=== PATIENT | male | born 1990 | race Caucasian/White ===

== ENCOUNTER 2020-10-23 12:04 | Emergency (ER) | payer BC, OTHER ==
[~2020-10-23] VITALS: Ht 177.8 cm; Wt 73.6 kg
[~2020-10-23 12:04] MED LIST: HYDR-3653 PO; ONDA4TAB7 PO
[2020-10-23] MEDS ORDERED: ONDANSETRON 2MG/ML, 2ML IVPush ONE (12:30)
[2020-10-23] MEDS ORDERED: SODIUM CHLORIDE FLUSH 10ML SYR IVF ONE (12:30)
[2020-10-23 12:42] LABS: BASOPHILS % (AUTO) 0 % (0-1); EOSINOPHILS % (AUTO) 0 % (1-7); LYMPHOCYTES % (AUTO) 18 % (22-44); MEAN CORPUSCULAR HEMOGLOBIN 29.8 pg (27.5-34.5); MEAN CORPUSCULAR HGB CONC 33.6 g/dL (33.2-36.2); MEAN PLATELET VOLUME 8.6 fL (7.4-10.4); MONOCYTES % (AUTO) 8 % (2-9); NEUTROPHILS % (AUTO) 74 % (42-75); PLATELET COUNT 260 x10^3/uL (130-400); RED BLOOD COUNT 5.55 x10^6/uL (4.38-5.82); RED CELL DISTRIBUTION WIDTH 12.8 % (9.4-14.8)
[2020-10-23 12:49] LABS: MD NO
[2020-10-23] MEDS ORDERED: MORPHINE SULFATE 4 MG/ML, 1ML ONE ×2 (12:50→14:08)
[2020-10-23] MEDS ORDERED: ONDANSETRON 2MG/ML, 2ML ONE (12:50)
[2020-10-23] MEDS: MORPHINE SULFATE 4 MG/ML, 1ML IVPush PRN ×2 (12:51→14:09)
[2020-10-23 12:53] LABS: ANION GAP 8 mmol/L (5-15); CALCIUM 9.9 mg/dL (8.5-10.1); CHLORIDE 109 mmol/L (98-107); CREATININE 1.25 mg/dL (0.7-1.3)
[2020-10-23] MEDS ORDERED: KETOROLAC 30 MG/1 ML ONE (14:08)
[2020-10-23] MEDS ORDERED: KETOROLAC 30 MG/1 ML IVPush ONE (14:30)
[2020-10-23 15:34] VITALS: BP 113/71
--- NOTE | 2020-10-23 15:35 | NUR ---
BREAK RN: PT RESTING IN ROOM. NO ACUTE DISTRESS NOTED. CALL LIGHT IN PLACE. WILL CONTINUE TO MONITOR WHILE PRIMARY RN IS ON BREAK.
== END 2020-10-23 15:57 | disposition home or self-care (01) ==
LOC: ED 13:01
DX: N13.2 Hydronephrosis with renal and ureteral calculous obstruction (principal); N23 Unspecified renal colic; N50.811 Right testicular pain; R11.2 Nausea with vomiting, unspecified
CPT/HCPCS: 36415; 74176; 76870; 80048; 82040; 85025; 96374; 96375; 96376; 99285; J1885; J2270; J2405